=== PATIENT | female | born 1960 | race Caucasian/White ===

== ENCOUNTER 2021-03-18 16:16 | Emergency (ER) | payer OTHER ==
[~2021-03-18 16:16] MED LIST: CORTAID28 GM TOP; CYMBALTA60 MG PO; DULOXETINE HCL20 MG PO; MEDROL 4MG DOSEP4 MG PO; MOTRIN600 MG PO; NORCO 5-325 TA1 EACH PO; PERCOCET 5-3251 EACH PO; ROBAXIN750 MG PO
[2021-03-18 19:18] LABS: BILIRUBIN NEGATIVE (NEGATIVE); BLOOD NEGATIVE Ery/uL (NEGATIVE); CLARITY CLEAR (CLEAR); COLOR YELLOW (YELLOW); GLUCOSE (U) NORMAL (NORMAL); LEUKOCYTES 2+ Leu/uL (NEGATIVE); NITRITE NEGATIVE (NEGATIVE); PROTEIN NEGATIVE (NEGATIVE); SPECIFIC GRAVITY 1.015 (1.001-1.030); UROBILINOGEN 0.2 mg/dL (0.2-1.0); pH 6.5 (5.0-9.0)
[2021-03-18 19:20] LABS: BASOPHIL 0.4 % (0-2); EOSINOPHIL 1.1 % (0-5); HCT 42.6 % (37.0-47.0); HGB 14.7 g/dl (12.5-16.0); LYMPHOCYTE 21.1 % (15-48); MCH 30.2 pg (25.0-31.0); MCHC 34.5 g/dL (32.0-36.0); MCV 87.7 fL (78.0-100.0); MONOCYTE 7.3 % (0-12); MPV 10.3 fL (6.0-9.5); NEUTROPHIL 69.9 % (41-80); NRBC 0; PLT 146 K/uL (150-400); RBC 4.86 M/uL (4.20-5.40); RDW 11.9 % (11.5-14.0); WBC 4.6 K/uL (4.0-10.5)
[2021-03-18 19:26] LABS: BACTERIA TRACE
[2021-03-18 19:33] LABS: BILIRUBIN - TOTAL 0.9 mg/dL (0.2-1.0); BUN/CREAT RATIO (CALC) 17.1 RATIO; CREATININE 0.82 mg/dL (0.51-0.95); GLOBULIN (CALCULATION) 3.6 g/dL; POTASSIUM 4.3 mmol/L (3.5-5.1); TOTAL PROTEIN 7.6 g/dL (6.4-8.2)
[2021-03-18] MEDS ORDERED: IMODIUM2 MG PO (20:57)
[2021-03-18] MEDS ORDERED: FIORICET1 EACH PO (20:57)
== END 2021-03-18 21:07 | disposition home or self-care (01) ==
LOC: FER 16:16
PROVIDERS: Emergency Medicine
DX: B34.9 Viral infection, unspecified (principal); Z88.2 Allergy status to sulfonamides; Z88.0 Allergy status to penicillin; Z88.8 Allergy status to other drugs, medicaments and biological substances; Z88.5 Allergy status to narcotic agent; Z20.822 Contact with and (suspected) exposure to COVID-19
CPT/HCPCS: 36415; 80053; 81001; 85025; J0780; J1885; J7030; U0002